=== PATIENT | female | born 1995 | race Caucasian/White ===

== ENCOUNTER → 2019-08-25 12:01 | Outpatient (BNVA) | payer SELFPAY | PROVIDERS: Family Provider Nurse Practitioner Family; PCP Nurse Practitioner Family; Visit Provider Orthopaedic Surgery | DX: S89.91XA Unspecified injury of right lower leg, initial encounter (principal); X58.XXXA Exposure to other specified factors, initial encounter | CPT/HCPCS: 73562 ==

== ENCOUNTER 2020-02-29 16:24 | Emergency (ER) | payer SELFPAY ==
[2020-02-29 16:29] VITALS: BP 130/93; PULSE 102; RESP 18; TEMP 37.1; O2SAT 99; BMI 29.0
--- NOTE | 2020-02-29 16:59 | ED_ITS ---
HPI - General Adult General: Chief complaint: General Medical Stated complaint: DRUGS Time Seen by Provider: 02/29/20 16:48 History of Present Illness: HPI narrative: Patient is a 24-year-old female comes to the ED via EMS after ingestion of unknown drug. EMS gave patient an IV and 4 mg of Zofran. Patient states that she was out deer hunting and the person she was with handed her a pipe to smoke. Patient says she has no idea what was in pipe. She was not trying to harm herself but gave drug try. She inhaled from the pipe and says she started getting anxious and felt like she was going to . She then called EMS to come get her. She states she passed out a couple times and had some episodes of nausea and emesis. She states she has never used drugs before and states that she has not ingested any alcohol today. While here in the ED patient describes feeling of full body numbness. Associated symptoms: Deny chest pain, dyspnea, headache(s), nausea, rash, palpitations or vomiting Review of Systems Const: Denies: fever(s), chills or fatigue Eyes: Denies: change in vision or eye discomfort ENMT: Denies: throat pain, odynophagia, nasal discharge or nasal congestion Card: Denies: chest pain, palpitations, edema, swelling of feet/ankles, dyspnea on exertion or orthopnea Resp: Denies: dyspnea, productive cough or non-productive cough GI: Denies: abdominal pain, nausea, vomiting, diarrhea, constipation or hematochezia : Denies: flank pain, dysuria or hematuria Musc: Denies: neck pain, back pain or extremity swelling Skin/Breast: Denies: rash or new lesions Neuro: Denies: headache(s), numbness in extremities or weakness in extremities Psych: Reports: other (Drug use.) [facility] ED Female Reproductive History: Date of last menstrual period: 02/27/20 Physical Exam Const: COMMON NORMALS: no acute distress, patient oriented x3 and alert GENERAL APPEARANCE: cooperative and comfortable HENMT: COMMON NORMALS: normocephalic HEAD & SCALP: normocephalic MOUTH: Normal oral and palatal mucosa present THROAT: posterior oropharynx normal and uvula midline Eye: COMMON NORMALS: EOMs intact bilaterally, conjunctivae normal and normal visual dudley by confrontation CONJUNCTIVA: Yes conjunctivae normal PUPIL: Yes Pupil accommodation reflex normal and Yes Dilated pupils bilaterally (Dilated but reactive to light.) Neck/C-Spine: COMMON NORMALS: supple GENERAL: Yes normal visual inspection Resp: COMMON NORMALS: normal respiratory effort, No retractions, No use of accessory muscles and clear to auscultation bilaterally AUSCULTATION: clear to auscultation bilaterally Cardio: COMMON NORMALS: regular rate, regular rhythm, S1 normal heart sound present, S2 normal heart sound present, No gallops present (Cardio), No clicks present (Cardio), No murmurs present (Cardio) and Peripheral pulses 2+ throughout RATE: regular rate RHYTHM: regular rhythm HEART SOUNDS: S1 normal heart sound present and S2 normal heart sound present PERIPHERAL PULSES: Peripheral pulses 2+ throughout GI: COMMON NORMALS: Normal to inspection, nondistended, normoactive bowel sounds present, Soft to palpation, non-tender and no masses PALPATION: Yes Soft to palpation : COMMON NORMALS: Yes no CVA tenderness BLADDER/KIDNEY EXAM: Yes no CVA t enderness Back/Pelvis: COMMON NORMALS: no CVA tenderness Neuro: COMMON NORMALS: patient oriented x3, CN's II-XII intact bilaterally, moves all extremities, no focal motor deficits and no sensory deficits noted SENSORIUM/ORIENTATION: Yes alert COORDINATION/BALANCE: [id number] test normal SPEECH: speech normal SENSORY EXAM: Yes extremities (intact) MOTOR EXAM: 5/5 motor strength present throughout COORDINATION: [id number] test normal Skin: GENERAL SKIN EXAM: dry skin Course Vital Signs: Vital signs: Vital Signs Temperature 98.7 F 02/29/20 16:29 Pulse Rate 102 H 02/29/20 16:29 Respiratory Rate 18 02/29/20 16:29 Blood Pressure 130/93 02/29/20 16:29 Pulse Oximetry 99 02/29/20 16:29 MDM - General Adult MDM Narrative: Medical decision making narrative: Patient is a 24-year-old female comes to the ED via EMS after ingestion of unknown drug. Patient was offered a pipe to smoke by her friend. She tried it and started getting anxious and felt like she was going to . Exam findings?tachycardia. Pupils were dilated bilaterally. The rest of neuro exam was completely normal. Lungs clear to station bilaterally. Labs and other testing were ordered but patient refused any further labs or testing to be done here in the ED. Patient signed AMA form and left. Discharge Plan Discharge Patient Disposition: Left Against Medical Advice Clinical Impression: Ingested substance, unknown drug Qualifiers: Encounter type: initial encounter Injury intent: accidental or unintentional Qualified Code(s): T50.901A - Poisoning by unspecified drugs, medicaments and biological substances, accidental (unintentional), initial encounter Condition: Stable Prescriptions: No Action multivitamin Capsule 1 cap PO DAILY PRN (Reason: unknown) RF: 0 Referrals: Thom Pablo FNP [Primary Care Provider] - Coding Level of Care Code ED Teller Manager for Chg Fwd Exam Comprehensive
== END 2020-02-29 17:05 | disposition left against medical advice (07) ==
PROVIDERS: Emergency Provider Physician Assistant; PCP Nurse Practitioner Family
DX: T50.901A Poisoning by unspecified drugs, medicaments and biological substances, accidental (unintentional), initial encounter (principal); Y92.73 Farm field as the place of occurrence of the external cause; Z53.29 Procedure and treatment not carried out because of patient's decision for other reasons; R00.0 Tachycardia, unspecified
CPT/HCPCS: 12345; 99281